=== PATIENT | male | born 1945 | race Caucasian/White ===

== ENCOUNTER 2018-03-13 14:12 | Emergency (ER) | payer MEDICARE, MEDICAID ==
[2018-03-13 15:10] LABS: #Eosinphils 0.1 thou/uL (0.0-0.7); #Lymphocytes 1.5 thou/uL (1.20-3.40); #Monocytes 0.5 thou/uL (0.11-0.59); #Neutrophils 4.4 thou/uL (1.40-6.50); %Basophils 0.7 % (0.0-1.0); %Eosinophils 1.2 % (0.0-10.0); %Lymphocytes 22.6 % (21.0-51.0); %Monocytes 7.1 % (0.0-10.0); %Neutrophils 68.4 % (42.0-75.0); Hemoglobin 14.2 g/dL (14.0-18.0); Mean Corpuscular HGB CONC 34.5 g/dL (32.0-36.0); Mean Corpuscular Hemoglobin 31.6 pg (27.0-31.0); Mean Corpuscular Volume 91.5 fL (78.0-98.0); Platelet Count 200 thou/uL (130-400); RBC Distribution Width 12.3 % (11.5-14.5); Red Blood Cell (RBC) Count 4.51 mill/uL (4.70-6.10); White Blood Cell (WBC) Count 6.4 thou/uL (4.8-10.8)
[2018-03-13 15:14] LABS: PTT 28.1 SEC (22.9-36.1); Prothrombin Time 12.8 SEC (12.0-14.7)
[2018-03-13] MEDS ORDERED: Adacel (T-DAP) 0.5 ML SYRINGE ONE (15:16)
[2018-03-13] MEDS ORDERED: Oxymetazoline HCl 0.05% ( 15 ML ) ONE (15:16)
[2018-03-13] MEDS ORDERED: Amoxicillin/Potassium Clav 500 MG TAB ONE (15:16)
[2018-03-13 15:24] LABS: ALT (SGPT) 12 U/L (8-55); AST (SGOT) 19 U/L (5-34); Alkaline Phosphatase 58 U/L (40-150); Anion Gap 11 mmol/L (10-20); BUN (Urea Nitrogen) 13 mg/dL (8.4-25.7); Bilirubin, Total 0.6 mg/dL (0.2-1.2); Calc. Creatinine Clearance 0 mL/min (70-130); Calcium 9.1 mg/dL (7.8-10.44); Carbon Dioxide 26 mmol/L (23-31); Chloride 105 mmol/L (98-107); Estimated GFR-MDRD Greater than 90; Globulin 2.7 g/dL (2.4-3.5); Glucose 104 mg/dL (83-110); Protein, Total 6.7 g/dL (5.8-8.1); Sodium 138 mmol/L (136-145)
[2018-03-13] MEDS ORDERED: cloNIDine 0.1 MG TAB ONE (15:29)
== END 2018-03-13 16:16 | disposition home or self-care (01) ==
LOC: MADERS 14:12
DX: R04.0 Epistaxis (principal); I10 Essential (primary) hypertension; Z79.899 Other long term (current) drug therapy
CPT/HCPCS: 36415; 80053; 85025; 85610; 85730; 90471; 90715

== ENCOUNTER 2018-11-26 13:29 | Emergency (ER) | payer MEDICARE, MEDICAID ==
[~2018-11-26 13:29] MED LIST: Dextrose 5 %-0.45 % NaCl 1000 ml Bag ONE
[2018-11-26] MEDS ORDERED: Lidocaine 1% w/Epinephrine 1:100K 20 ML VIAL ONE (13:39)
[2018-11-26] MEDS ORDERED: Thiamine HCl 200 MG/2 ML VIAL ONE (14:05)
[2018-11-26] MEDS ORDERED: Adacel (T-DAP) 0.5 ML SYRINGE ONE (14:05)
[2018-11-26] MEDS ORDERED: Multivit, Adult Inj 10 ML VIAL ONE (14:06)
--- NOTE | 2018-11-26 14:18 | CT ---
CT CERVICAL SPINE NONCONTRAST: DATE: 11/26/2018 HISTORY: cervical trauma: 72-year-old male status post fall FINDINGS: There are no jumped or perched facets. There is no evidence of acute fracture. The vertebral body hei ghts are maintained. There is no prevertebral soft tissue swelling. IMPRESSION: No evidence of acute fracture or acute traumatic subluxation.
[2018-11-26 14:23] LABS: #Basophils 0.1 thou/uL (0.0-0.2); #Lymphocytes 1.2 thou/uL (1.20-3.40); #Monocytes 0.6 thou/uL (0.11-0.59); #Neutrophils 7.8 thou/uL (1.40-6.50); %Eosinophils 0.3 % (0.0-10.0); %Lymphocytes 12.7 % (21.0-51.0); %Monocytes 6.3 % (0.0-10.0); %Neutrophils 79.8 % (42.0-75.0); Hemoglobin 15.7 g/dL (14.0-18.0); Mean Corpuscular Hemoglobin 29.6 pg (27.0-31.0); Mean Corpuscular Volume 87.2 fL (78.0-98.0); Platelet Count 219 thou/uL (130-400); RBC Distribution Width 11.8 % (11.5-14.5); Red Blood Cell (RBC) Count 5.31 mill/uL (4.70-6.10); White Blood Cell (WBC) Count 9.7 thou/uL (4.8-10.8)
--- NOTE | 2018-11-26 14:24 | CT ---
WHOLE BODY BONE SCAN: HISTORY: Malignant neoplasm of prostate RADIOPHARMACEUTICAL: 33 mCi technetium 99m-MDP injected intravenously COMPARISON: None FINDINGS: There scattered degenerative activity in the appendicular skeleton. Focally increased uptake in a low er left costochondral junction is nonspecific. No other abnormal areas of tracer localization are seen in the skeleton to suggest metastatic disease . Tracer excretion through the kidneys is within normal limits. IMPRESSION: No scintigraphic evidence of osseous metastatic disease.
[2018-11-26 14:38] LABS: ALT (SGPT) 11 U/L (8-55); AST (SGOT) 16 U/L (5-34); Albumin 4.4 g/dL (3.4-4.8); Alcohol Less than 10 mg/dL (Less than 10); Alkaline Phosphatase 75 U/L (40-150); Anion Gap 19 mmol/L (10-20); BUN (Urea Nitrogen) 21 mg/dL (8.4-25.7); CK (CPK) 168 U/L (30-200); Calc. Creatinine Clearance 0 mL/min (70-130); Calcium 9.5 mg/dL (7.8-10.44); Carbon Dioxide 22 mmol/L (23-31); Chloride 105 mmol/L (98-107); Estimated GFR-MDRD 40; Glucose 132 mg/dL (83-110); Potassium 3.3 mmol/L (3.5-5.1); Protein, Total 7.4 g/dL (5.8-8.1); Sodium 143 mmol/L (136-145)
[2018-11-26 14:54] LABS: CKMB 3.3 ng/mL (0-6.6)
--- NOTE | 2018-11-26 15:02 | CT ---
CT BRAIN WITHOUT CONTRAST: HISTORY: Fall, unknown loss of consciousness. FINDINGS: There is an 8 mm focal hemorrhagic contusion in the posteromedial left parietal lobe cortex. There i s soft tissue scalp contusion and skin jj in the left posterior parietal scalp at the level of t he hemorrhagic contusion. The ventricular size is appropriate and the basilar cisterns patent. No midline shift is seen. Ther e are changes of chronic small-vessel ischemic disease. The bony calvarium is intact. There is phth marjorie bulbi on the right. An old lacunar infarction is seen in the right thalamus. IMPRESSION: Small focal acute hemorrhagic contusion in the left posterior parietal lobe. I recommend further evaluation with contrast-enhanced MRI of the brain. Discussed over the telephone with ER physician, Dr. Te Pena, at 2:09 p.m. ROSS MAZARIEGOS POS: [facility]
== END 2018-11-26 15:55 | disposition short-term general hospital (02) ==
LOC: MADERS 13:29
DX: S06.309A Unspecified focal traumatic brain injury with loss of consciousness of unspecified duration, initial encounter (principal); S01.01XA Laceration without foreign body of scalp, initial encounter; I10 Essential (primary) hypertension; W01.198A Fall on same level from slipping, tripping and stumbling with subsequent striking against other object, initial encounter
CPT/HCPCS: 12002; 36415; 70450; 72125; 80053; 80307; 82550; 82553; 84484; 85025; 90471; 90715; 93005; 96365; J2001; J3411; J7042

== ENCOUNTER 2019-01-26 18:57 | Inpatient (IN) | payer MEDICARE, MEDICAID ==
[2019-01-26 19:41] LABS: #Basophils 0.1 thou/uL (0.0-0.2); #Eosinphils 0.3 thou/uL (0.0-0.7); #Monocytes 0.6 thou/uL (0.11-0.59); #Neutrophils 6.5 thou/uL (1.40-6.50); %Basophils 0.9 % (0.0-1.0); %Monocytes 7.3 % (0.0-10.0); %Neutrophils 75.8 % (42.0-75.0); Hemoglobin 11.8 g/dL (14.0-18.0); Mean Corpuscular Hemoglobin 28.7 pg (27.0-31.0); Mean Corpuscular Volume 92.7 fL (78.0-98.0); Mean Platelet Volume 7.2 fL (7.4-10.4); Platelet Count 258 thou/uL (130-400); RBC Distribution Width 14.3 % (11.5-14.5); Red Blood Cell (RBC) Count 4.12 mill/uL (4.70-6.10); White Blood Cell (WBC) Count 8.6 thou/uL (4.8-10.8)
--- NOTE | 2019-01-26 19:49 | CT ---
CT BRAIN WITHOUT CONTRAST: HISTORY: Head injury post fall. COMPARISON: 11/27/2018 FINDINGS: The ventricular and cisternal system shows generalized atrophy with decreased attenuation to the davis ventricular white matter, consistent with some chronic white matter change. There are no signs of int racerebral hemorrhage or extraaxial fluid collections. The mastoid air cells and visualized sinuses a re clear. IMPRESSION: No acute intracranial abnormalities. POS: [facility]
[2019-01-26 19:50] LABS: ALT (SGPT) 23 U/L (8-55); AST (SGOT) 22 U/L (5-34); Albumin 3.8 g/dL (3.4-4.8); Alcohol Less than 10 mg/dL (Less than 10); Alkaline Phosphatase 129 U/L (40-110); Anion Gap 15 mmol/L (10-20); BUN (Urea Nitrogen) 13 mg/dL (8.4-25.7); Bilirubin, Total 0.5 mg/dL (0.2-1.2); CK (CPK) 88 U/L (30-200); Calc. Creatinine Clearance 0 mL/min (70-130); Calcium 8.8 mg/dL (7.8-10.44); Carbon Dioxide 24 mmol/L (23-31); Chloride 105 mmol/L (98-107); Estimated GFR-MDRD 65; Globulin 3.5 g/dL (2.4-3.5); Glucose 104 mg/dL (83-110); Potassium 4.3 mmol/L (3.5-5.1); Protein, Total 7.3 g/dL (5.8-8.1); Sodium 140 mmol/L (136-145)
--- NOTE | 2019-01-26 20:17 | RAD ---
CHEST TWO VIEWS: HISTORY: Fall. COMPARISON: Chest radiograph from 12/30/2018. FINDINGS: Mil ectasia of the ascending aorta. The lungs are without confluent air space consolidation, pneumoth orax or effusion. Multiple midline sternotomy wires. No acute osseous abnormality. IMPRESSION: No acute intrathoracic abnormality. POS: HOME
[2019-01-26 20:33] LABS: Bilirubin Negative (Negative); Blood, Urine Negative (Negative); Clarity Clear (Clear); Glucose, Urine (Dipstick) Negative (Negative); Leukocyte Negative (Negative); Nitrite Negative (Negative); Protein, Urine (Dipstick) Negative (Neg-Trace)
[2019-01-26 20:42] LABS: Amphetamine Not Detected (NotDetected); Barbiturates Screen Not Detected (NotDetected); Benzodiazepine Screen Not Detected (NotDetected); Cocaine Metabolite Screen Not Detected (NotDetected); Medtox Control Line Valid? VALID (VALID); Methadone Not Detected (NotDetected); Methamphetamine Not Detected (NotDetected); Opiate Screen Not Detected (NotDetected); Oxycodone Screen Not Detected (NotDetected); Phencyclidine (PCP) Not Detected (NotDetected); THC/Cannabinoid Screen Not Detected (NotDetected); Tricyclic Screen Not Detected (NotDetected)
[2019-01-27] MEDS ORDERED: Calcium Carbonate 500 MG ChewTAB PO PRN (00:25)
[2019-01-27] MEDS ORDERED: Ondansetron ODT 4 MG TAB PO PRN (00:25)
[2019-01-27] MEDS ORDERED: Acetaminophen 325 MG TAB PO PRN (00:25)
[2019-01-27] MEDS ORDERED: Senokot S 8.6-50 MG TAB PO PRN (00:28)
[2019-01-27] MEDS ORDERED: traMADol HCl 50 MG TAB PO PRN (00:36)
[2019-01-27] MEDS: Amiodarone 200 MG TAB PO SCH (08:52)
[2019-01-27] MEDS: Carvedilol 3.125 MG TAB PO SCH ×2 (08:52→20:33)
[2019-01-27] MEDS ORDERED: Aspirin 81 mg Enteric Coated Tablet PO SCH (09:00)
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
[2019-01-27] MEDS: Atorvastatin Calcium 40 MG TAB PO SCH (20:33)
[2019-01-27] MEDS: Mirtazapine 15 MG TAB PO SCH (20:33)
[2019-01-28] MEDS: Amiodarone 200 MG TAB PO SCH (08:34)
[2019-01-28] MEDS: Furosemide 40 MG TAB PO SCH (08:34)
[2019-01-28] MEDS: Lisinopril 5 MG TAB PO SCH (08:34)
[2019-01-28] MEDS: Aspirin 325 MG TAB PO SCH (08:34)
[2019-01-28] MEDS: Carvedilol 3.125 MG TAB PO SCH ×2 (08:34→20:29)
[2019-01-28] MEDS: Thiamine 100 MG TAB PO SCH (08:59)
[2019-01-28] MEDS: Multivit, Therapeutic 1 TAB PO SCH (08:59)
[2019-01-28] MEDS: Folic Acid 1 MG TAB PO SCH (08:59)
--- NOTE | 2019-01-28 10:07 | PRG ---
DATE OF SERVICE: 01/28/2019 SUBJECTIVE: The patient said he rested well. He said he is feeling good this morning and physical therapy has worked with him and he was walking up to 150 feet with his walking stick with supervision. He was able to transfer with supervision. The dietitian saw him and he did mention to her that he has several drinks in the evening and should recommend starting Folic acid, thiamine, and multivitamin. The patient's urine checked for alcohol. Blood screen for alcohol was negative upon admission. OBJECTIVE: GENERAL: The patient is sitting up in a chair. He is alert, talkative, was a little mixed up on the day of the week, but appears comfortable, in no distress. VITAL SIGNS: His vital signs show a temperature 97.3, pulse 70, respirations 16 , O2 saturation 96% on room air, and blood pressure 125/60. HEENT: His scalp, there is a small abrasion over the left occiput. There is no swelling or bruising. LUNGS: Clear. HEART: Regular rate. Bruising on the left dorsal forearm and abrasions are better. Sheila Michaud with [employer] has visited with the patient and also spoke with APS and referral has been made for them. ASSESSMENT: 1. Fall. a. Resulting in abrasions and contusion to the left dorsal forearm. b. Small abrasion to the left posterior occiput. 2. Generalized weakness. a. Questionable ability to adequately care for his ADLs and instrumental ADLs. b. Ambulating up to 150 feet with a walking stick just standby assistance. Transferring independently with standby assistance as of 01/28. 3. Coronary artery disease. a. Triple-vessel, requiring coronary artery bypass x3 on 12/27/2018. 4. Ischemic cardiomyopathy. a. Ejection fraction 20% to 25%. This was prior to his bypass surgery. b. No evidence of acute congestive heart failure at present. c. History of ventricular tachycardia. d. Should be wearing a LifeVest, but is not. 5. Hypertension. 6. Hyperlipidemia. 7. Blind in the right eye. 8. Social dysfunction. a. Unsure the patient has adequate assistance for managing his ADLs and instrumental ADLs. b. Living situation is questionable. PLAN: We will continue the physical therapy, still awaited there is other information regarding his level of care and assistance in the home. The patient is blind in the right eye. He is not able to drive with his history of the ventricular arrhythmias and not wearing his LifeVest. Home situation is questionable. The patient feels like that he will manage fine. Once he goes home, he can take care of himself. Job ID: [id number] [facility]
[2019-01-28] MEDS: Mirtazapine 15 MG TAB PO SCH (20:29)
[2019-01-28] MEDS: Atorvastatin Calcium 40 MG TAB PO SCH (20:29)
[2019-01-29] MEDS: Carvedilol 3.125 MG TAB PO SCH ×2 (08:27→20:49)
[2019-01-29] MEDS: Furosemide 40 MG TAB PO SCH (08:27)
[2019-01-29] MEDS: Aspirin 325 MG TAB PO SCH (08:27)
[2019-01-29] MEDS: Amiodarone 200 MG TAB PO SCH (08:27)
[2019-01-29] MEDS: Thiamine 100 MG TAB PO SCH (08:27)
[2019-01-29] MEDS: Lisinopril 5 MG TAB PO SCH (08:27)
[2019-01-29] MEDS: Folic Acid 1 MG TAB PO SCH (08:27)
[2019-01-29] MEDS: Multivit, Therapeutic 1 TAB PO SCH (08:27)
--- NOTE | 2019-01-29 10:57 | PRG ---
DATE OF SERVICE: 01/29/2019 SUBJECTIVE: The patient said he is doing good. He is feeling better. Therapist says that he is walking, and he has a little problem with balance, but uses his stick to balance. He gets up from bed and chair without assistance. OBJECTIVE: GENERAL: The patient is up standing and is using his stick for balance. He is alert, talkative, appears very calm. Nurses said he has been very pleasant. LUNGS: Clear. HEART: Regular rate. EXTREMITIES: No edema. ASSESSMENT: 1. Fall. a. Resulting in abrasions and contusion to the left dorsal forearm. b. Small abrasion to the left posterior occiput. 2. Generalized weakness. a. Questionable ability to adequately care for his ADLs and instrumental ADLs. b. Ambulating up to 150 feet with a walking stick just standby assistance. Transferring independently with standby assistance as of 01/28. c. Continues to improve. Ambulating independently and transferring independently as of 01/29. 3. Coronary artery disease. a. Triple-vessel, requiring coronary artery bypass x3 on 12/27/2018. b. Asymptomatic as of 01/29. 4. Ischemic cardiomyopathy. a. Ejection fraction 20% to 25%. This was prior to his bypass surgery. b. No evidence of acute congestive heart failure as of 01/29. c. History of ventricular tachycardia. d. Should be wearing a LifeVest, but is not. 5. Hypertension. 6. Hyperlipidemia. 7. Blind in the right eye. 8. Social dysfunction. a. Unsure the patient has adequate assistance for managing his ADLs and instrumental ADLs. b. Living situation is questionable. PLAN: The patient is doing fine. The bruising and abrasion on the left forearm and scalp are all resolving. He is eating good. He is managing his ADLs. He says that he will be able to manage fine in his home. He has propane, which provide heat and heat for cooking. He says he does not want Miriam, his ex-girlfriend, to assist with his care. He said he has neighbors that can assist with his care. We will arrange for home health to see him. Continue his physical therapy. He apparently has investigating home situation, but may not hear anything on this for a while. Anticipate that he will be able to be discharged tomorrow and this is what he wishes to do. Job ID: [id number] MTDD
[2019-01-29] MEDS: Atorvastatin Calcium 40 MG TAB PO SCH (20:49)
[2019-01-29] MEDS: Mirtazapine 15 MG TAB PO SCH (20:49)
[2019-01-30] MEDS: Furosemide 40 MG TAB PO SCH (08:16)
[2019-01-30] MEDS: Aspirin 325 MG TAB PO SCH (08:16)
[2019-01-30] MEDS: Carvedilol 3.125 MG TAB PO SCH (08:16)
[2019-01-30] MEDS: Folic Acid 1 MG TAB PO SCH (08:16)
[2019-01-30] MEDS: Multivit, Therapeutic 1 TAB PO SCH (08:16)
[2019-01-30] MEDS: Thiamine 100 MG TAB PO SCH (08:16)
[2019-01-30 08:17] VITALS: BP 136/74
[2019-01-30] MEDS: Lisinopril 5 MG TAB PO SCH (08:17)
[2019-01-30] MEDS: Amiodarone 200 MG TAB PO SCH (08:17)
[2019-01-30 08:35] VITALS: TEMP 98
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
[2019-01-30 13:32] VITALS: BMI 20.6
== END 2019-01-30 14:01 | disposition home health service (06) | DRG 605 ==
LOC: MADERS 18:57 → EEVIPCON 18:57 → MADMS 21:00 → UNDOADMIN 21:00
PROVIDERS: ADMIT Family Medicine; ATTEND Family Medicine
DX: S50.12XA Contusion of left forearm, initial encounter (principal); R53.1 Weakness; I25.10 Atherosclerotic heart disease of native coronary artery without angina pectoris; Z95.1 Presence of aortocoronary bypass graft; I10 Essential (primary) hypertension; E78.5 Hyperlipidemia, unspecified; H54.40 Blindness, one eye, unspecified eye; Y08.89XA Assault by other specified means, initial encounter; Z98.42 Cataract extraction status, left eye; Z79.82 Long term (current) use of aspirin; I25.5 Ischemic cardiomyopathy; R62.7 Adult failure to thrive; Z68.20 Body mass index [BMI] 20.0-20.9, adult; S00.91XA Abrasion of unspecified part of head, initial encounter; B96.6 Bacteroides fragilis [B. fragilis] as the cause of diseases classified elsewhere; E78.00 Pure hypercholesterolemia, unspecified; I50.9 Heart failure, unspecified
CPT/HCPCS: 36415; 70450; 71046; 80053; 80306; 80307; 81003; 82550; 83880; 85025; 93005

== ENCOUNTER 2020-05-25 18:25 | Emergency (ER) | payer MEDICARE, MEDICAID ==
[~2020-05-25 18:25] MED LIST changes: -Dextrose 5 %-0.45 % NaCl 1000 ml Bag ONE; +Sodium Chloride 0.9% 1,000 ML BAG ONE
[2020-05-25 20:10] LABS: #Basophils 0.1 thou/uL (0.0-0.2); #Eosinphils 0.1 thou/uL (0.0-0.7); #Lymphocytes 0.9 thou/uL (1.20-3.40); #Monocytes 0.6 thou/uL (0.11-0.59); %Basophils 1.6 % (0.0-1.0); %Eosinophils 1.9 % (0.0-10.0); %Lymphocytes 11.9 % (21.0-51.0); %Monocytes 7.3 % (0.0-10.0); %Neutrophils 77.4 % (42.0-75.0); Hemoglobin 16.1 g/dL (14.0-18.0); Mean Corpuscular HGB CONC 33.4 g/dL (32.0-36.0); Mean Corpuscular Hemoglobin 29.4 pg (27.0-31.0); Mean Platelet Volume 7.7 fL (7.4-10.4); Platelet Count 211 thou/uL (130-400); RBC Distribution Width 11.8 % (11.5-14.5); Red Blood Cell (RBC) Count 5.46 mill/uL (4.70-6.10); White Blood Cell (WBC) Count 7.8 thou/uL (4.8-10.8)
[2020-05-25 20:31] LABS: ALT (SGPT) 9 U/L (8-55); AST (SGOT) 14 U/L (5-34); Acetaminophen Less than 6.0 mcg/mL (10.0-30.0); Alcohol Less than 10 mg/dL (Less than 10); Alkaline Phosphatase 92 U/L (40-110); Anion Gap 17 mmol/L (10-20); BUN (Urea Nitrogen) 19 mg/dL (8.4-25.7); Bilirubin, Total 0.5 mg/dL (0.2-1.2); Calc. Creatinine Clearance 0 mL/min (70-130); Carbon Dioxide 21 mmol/L (23-31); Chloride 103 mmol/L (98-107); Globulin 3.2 g/dL (2.4-3.5); Glucose 167 mg/dL (83-110); Potassium 4.2 mmol/L (3.5-5.1); Protein, Total 7.2 g/dL (5.8-8.1); Salicylate Less than 8.0 mg/dL (15.0-30.0); Sodium 137 mmol/L (136-145)
[2020-05-25 22:31] LABS: Bilirubin Negative (Negative); Blood, Urine Negative (Negative); Clarity Clear (Clear); Glucose, Urine (Dipstick) Negative (Negative); Ketone, Urine Negative (Negative); Leukocyte Negative (Negative); Nitrite Negative (Negative); Protein, Urine (Dipstick) Negative (Neg-Trace); Specific Gravity, Urine 1.025 (1.005-1.030); Urobilinogen 0.2 mg/dL (Less than 2); pH, Urine 5.5 (5.0-9.0)
[2020-05-25 22:38] LABS: Amphetamine Not Detected (NotDetected); Barbiturates Screen Not Detected (NotDetected); Benzodiazepine Screen Not Detected (NotDetected); Cocaine Metabolite Screen Not Detected (NotDetected); Medtox Control Line Valid? VALID (VALID); Methadone Not Detected (NotDetected); Methamphetamine Not Detected (NotDetected); Opiate Screen Not Detected (NotDetected); Oxycodone Screen Not Detected (NotDetected); Phencyclidine (PCP) Not Detected (NotDetected); THC/Cannabinoid Screen Not Detected (NotDetected); Tricyclic Screen Not Detected (NotDetected)
== END 2020-05-25 23:07 | disposition home or self-care (01) ==
LOC: MADERS 18:25
DX: B80 Enterobiasis (principal); I10 Essential (primary) hypertension; R00.0 Tachycardia, unspecified; H18.891 Other specified disorders of cornea, right eye; F03.90 Unspecified dementia, unspecified severity, without behavioral disturbance, psychotic disturbance, mood disturbance, and anxiety; F19.11 Other psychoactive substance abuse, in remission; F10.10 Alcohol abuse, uncomplicated
CPT/HCPCS: 36415; 71045; 80053; 80306; 80307; 81003; 83605; 83880; 84484; 85025; 87086; 93005; J7050

== ENCOUNTER 2021-03-10 13:32 | Outpatient (CLI) | payer MEDICARE, MEDICAID ==
[2021-03-10 14:16] LABS: Hemoglobin 15.1 g/dL (14.0-18.0); Mean Corpuscular HGB CONC 32.2 g/dL (32.0-36.0); Mean Corpuscular Hemoglobin 28.1 pg (27.0-31.0); Mean Corpuscular Volume 87.3 fL (78.0-98.0); Mean Platelet Volume 7.5 fL (7.4-10.4); Platelet Count 196 thou/uL (130-400); RBC Distribution Width 12.9 % (11.5-14.5); Red Blood Cell (RBC) Count 5.38 mill/uL (4.70-6.10); White Blood Cell (WBC) Count 6.7 thou/uL (4.8-10.8)
[2021-03-10 14:24] LABS: ALT (SGPT) 14 U/L (8-55); AST (SGOT) 14 U/L (5-34); Albumin 3.9 g/dL (3.4-4.8); Alkaline Phosphatase 73 U/L (40-110); Anion Gap 10 mmol/L (10-20); BUN (Urea Nitrogen) 14 mg/dL (8.4-25.7); Bilirubin, Total 0.6 mg/dL (0.2-1.2); Calc. Creatinine Clearance 0 mL/min (70-130); Calcium 9.4 mg/dL (7.8-10.44); Carbon Dioxide 27 mmol/L (23-31); Chloride 104 mmol/L (98-107); Globulin 2.4 g/dL (2.4-3.5); Glucose 112 mg/dL (83-110); Potassium 4.3 mmol/L (3.5-5.1); Protein, Total 6.3 g/dL (5.8-8.1); Sodium 137 mmol/L (136-145)
== END 2021-03-10 13:33 | disposition home or self-care (01) ==
LOC: MADLAB 13:32
DX: R27.8 Other lack of coordination (principal)
CPT/HCPCS: 80053; 85027

== ENCOUNTER 2021-04-04 04:48 | Emergency (ER) | payer MEDICARE, MEDICAID ==
[2021-04-04] MEDS ORDERED: Lidocaine 1% (PF) 30 ML VIAL ONE (05:42)
[2021-04-04 05:48] LABS: #Basophils 0.1 thou/uL (0.0-0.2); #Eosinphils 0.3 thou/uL (0.0-0.7); #Lymphocytes 1.5 thou/uL (1.20-3.40); #Monocytes 0.7 thou/uL (0.11-0.59); #Neutrophils 5.6 thou/uL (1.40-6.50); %Basophils 1.2 % (0.0-1.0); %Eosinophils 3.3 % (0.0-10.0); %Lymphocytes 18.7 % (21.0-51.0); %Monocytes 8.3 % (0.0-10.0); %Neutrophils 68.5 % (42.0-75.0); Hemoglobin 15.3 g/dL (14.0-18.0); Mean Corpuscular HGB CONC 32.7 g/dL (32.0-36.0); Mean Corpuscular Hemoglobin 28.6 pg (27.0-31.0); Mean Corpuscular Volume 87.4 fL (78.0-98.0); Mean Platelet Volume 7.6 fL (7.4-10.4); Platelet Count 226 thou/uL (130-400); RBC Distribution Width 12.8 % (11.5-14.5); Red Blood Cell (RBC) Count 5.35 mill/uL (4.70-6.10); White Blood Cell (WBC) Count 8.2 thou/uL (4.8-10.8)
[2021-04-04 06:04] LABS: ALT (SGPT) 12 U/L (8-55); AST (SGOT) 14 U/L (5-34); Albumin 4.1 g/dL (3.4-4.8); Alkaline Phosphatase 75 U/L (40-110); Anion Gap 12 mmol/L (10-20); BUN (Urea Nitrogen) 12 mg/dL (8.4-25.7); Bilirubin, Total 0.9 mg/dL (0.2-1.2); Calc. Creatinine Clearance 0 mL/min (70-130); Calcium 9.7 mg/dL (7.8-10.44); Carbon Dioxide 27 mmol/L (23-31); Chloride 99 mmol/L (98-107); Globulin 3.2 g/dL (2.4-3.5); Glucose 106 mg/dL (83-110); Potassium 4.4 mmol/L (3.5-5.1); Protein, Total 7.3 g/dL (5.8-8.1); Sodium 134 mmol/L (136-145)
[2021-04-04] MEDS ORDERED: Boostrix 0.5 ML (Tdap) VIAL ONE (06:33)
[2021-04-04] MEDS ORDERED: Amoxicillin/Potassium Clav 875 MG TAB ONE (06:33)
== END 2021-04-04 07:45 ==
LOC: MADERS 04:48
DX: S06.0X1A Concussion with loss of consciousness of 30 minutes or less, initial encounter (principal); S01.81XA Laceration without foreign body of other part of head, initial encounter; S01.21XA Laceration without foreign body of nose, initial encounter; S13.4XXA Sprain of ligaments of cervical spine, initial encounter; W07.XXXA Fall from chair, initial encounter; I10 Essential (primary) hypertension; Z79.82 Long term (current) use of aspirin; Z79.899 Other long term (current) drug therapy
CPT/HCPCS: 12015; 70450; 70486; 72125; 80053; 85025; 90471; 90715; J2001

== ENCOUNTER 2021-11-09 19:05 | Outpatient (CLI) | payer MEDICARE, MEDICAID ==
[2021-11-09 19:30] LABS: ALT (SGPT) 12 U/L (8-55); AST (SGOT) 13 U/L (5-34); Albumin 3.7 g/dL (3.4-4.8); Alkaline Phosphatase 67 U/L (40-110); Anion Gap 13 mmol/L (10-20); BUN (Urea Nitrogen) 15 mg/dL (8.4-25.7); Bilirubin, Total 0.3 mg/dL (0.2-1.2); Calc. Creatinine Clearance 0 mL/min (70-130); Calcium 8.8 mg/dL (7.8-10.44); Carbon Dioxide 24 mmol/L (23-31); Chloride 104 mmol/L (98-107); Estimated GFR 93; Globulin 2.4 g/dL (2.4-3.5); Glucose 115 mg/dL (83-110); Potassium 4.2 mmol/L (3.5-5.1); Protein, Total 6.1 g/dL (5.8-8.1); Sodium 137 mmol/L (136-145)
[2021-11-09 19:34] LABS: #Basophils 0.1 thou/uL (0.0-0.2); #Eosinphils 0.2 thou/uL (0.0-0.7); #Lymphocytes 1.4 thou/uL (1.20-3.40); #Monocytes 0.5 thou/uL (0.11-0.59); #Neutrophils 3.8 thou/uL (1.40-6.50); %Basophils 1.1 % (0.0-1.0); %Eosinophils 4.1 % (0.0-10.0); %Monocytes 8.7 % (0.0-10.0); Mean Corpuscular HGB CONC 32.6 g/dL (32.0-36.0); Mean Corpuscular Hemoglobin 29.8 pg (27.0-31.0); Mean Corpuscular Volume 91.6 fL (78.0-98.0); Mean Platelet Volume 9.9 fL (7.4-10.4); Platelet Count 192 thou/uL (130-400); RBC Distribution Width 12.3 % (11.5-14.5); Red Blood Cell (RBC) Count 4.37 mill/uL (4.70-6.10)
== END 2021-11-09 19:06 | disposition home or self-care (01) ==
LOC: MADLABSP 19:05
DX: I50.23 Acute on chronic systolic (congestive) heart failure (principal)
CPT/HCPCS: 80053; 85025